=== PATIENT | male | born 1990 | race Caucasian/White ===

== ENCOUNTER 2023-05-15 01:35 | Emergency (ER) | payer MEDICAID ==
[~2023-05-15] VITALS: Ht 182.9 cm; Wt 206.4 kg
[2023-05-15 01:41] VITALS: BP_SYST 149
--- NOTE | 2023-05-15 01:56 | NUR ---
ABDOMEN PAIN AFTER EATING [place], 7/10 PAIN, X2 DAYS
--- NOTE | 2023-05-15 02:15 | NUR ---
REPORT GIVEN TO PEPE COLLINS AT THIS TIME
[2023-05-15] MEDS ORDERED: MAG HYDROX/AL HYDROX/SIMETH 30 ML, DICYCLOMINE HCL 20 MG, LIDOCAINE VISCOUS 2% 15ML (PO... PO ONE ×3 (02:30)
--- NOTE | 2023-05-15 02:40 | NUR ---
Patient in ed 5 for c/o abdominal pain. Patient said he had pain earlier in morning and took two x-lax and was able to have BM x2. He said it felt a little better but still had pain. Patient denies eating or drinking anything out of the ordinary. He denies taking medications. Alert and oriented x3. Respiration even and unlabored. No shortness of breath. Will continue to monitor.
[2023-05-15 02:53] LABS: BASOPHILS % (AUTO) 0.4 % (0.0-2.0); EOSINOPHILS % (AUTO) 0.4 % (0.0-4.0); HEMATOCRIT 40.4 % (36-54); LYMPHOCYTES # (AUTO) 2.2 K/uL (1.0-5.5); LYMPHOCYTES % (AUTO) 20.9 % (20.5-51.5); MEAN CORPUSCULAR HEMOGLOBIN 27 pg (27-31); MEAN CORPUSCULAR HGB CONC 32 % (32-36); MEAN CORPUSCULAR VOLUME 82 fL (79.0-98.0); MONOCYTES # (AUTO) 0.6 K/uL (0.0-1.0); MONOCYTES % (AUTO) 5.8 % (1.7-9.3); NEUTROPHILS # (AUTO) 7.6 K/uL (1.8-7.7); NEUTROPHILS % (AUTO) 72.5 % (40.0-70.0); PLATELET COUNT (AUTO) 268 K/uL (130-430); RED CELL DISTRIBUTION WIDTH 18.1 % (9.0-15.0); WHITE BLOOD COUNT (AUTO) 10.4 K/uL (4.8-10.8)
[2023-05-15 02:57] LABS: ALBUMIN 3.1 g/dL (3.4-4.8); CALCIUM 8.6 mg/dL (8.4-11.0); CREATININE 1.27 mg/dL (0.55-1.30); TOTAL BILIRUBIN 1.1 mg/dL (0.0-1.0)
[2023-05-15 04:08] LABS: BILIRUBIN,URINE NEGATIVE (NEGATIVE); CLARITY/URINE CLEAR (CLEAR); COLOR,URINE YELLOW (YELLOW); GLUCOSE,URINE NEGATIVE (NEGATIVE); KETONES,URINE NEGATIVE (NEGATIVE); LEUKOCYTE ESTERASE ,URINE NEGATIVE (NEGATIVE); NITRITE, URINE NEGATIVE (NEGATIVE); PH,URINE 6.5 (5.0-8.0); PROTEIN URINE 3+ (NEGATIVE); UROBILINOGEN,URINE 0.2 (0.2-1.0)
[2023-05-15 04:16] LABS: BLOOD, URINE TRACE (NEGATIVE)
[2023-05-15 04:25] LABS: BACTERIA,URINE RARE /HPF (None Seen)
--- NOTE | 2023-05-15 04:26 | NUR ---
Patient resting at the moment. Urine produced and collected for lab.
[2023-05-15] MEDS ORDERED: OMEP40CA20 PO (04:31)
[2023-05-15 04:35] VITALS: BP_SYST 134
--- NOTE | 2023-05-15 04:38 | NUR ---
Patient given written and verbal discharge instructions and verbalizes understanding. ER MD discussed with patient the results and treatment provided. Patient in stable condition. ID arm band removed. IV catheter removed intact and dressing applied, no active bleeding. Rx of omeprazole given. Patient educated on pain management and to follow up with PMD. Pain Scale . Opportunity for questions provided and answered. Medication side effect fact sheet provided.
== END 2023-05-15 04:35 | disposition home or self-care (01) ==
LOC: SED 01:35
DX: K29.70 Gastritis, unspecified, without bleeding (principal); R10.84 Generalized abdominal pain; K59.00 Constipation, unspecified; Z79.899 Other long term (current) drug therapy
CPT/HCPCS: 99283; 80053; 81000; 83690; 85025; 36415; J2001